=== PATIENT | female | born 1970 | race Caucasian/White ===

== ENCOUNTER 2022-08-22 11:25 | Emergency (ER) | payer OTHER ==
[2022-08-22 11:37] VITALS: BP 106/54; PULSE 79; RESP 18; TEMP 98.6; BMI 24.2
[2022-08-22 12:27] LABS: HCG,QUALITATIVE URINE Negative
[2022-08-22 12:30] LABS: HEMATOCRIT 26.6 % (32.4-45.2); HEMOGLOBIN 8.6 G/dL (10.7-15.3); MCH 28.9 pg (25.7-33.7); MCHC 32.3 g/dl (32.0-36.0); MEAN CELL VOLUME 89.3 fl (80-96); MEAN PLT VOLUME 7.5 fl (7.5-11.1); PLATELET COUNT 412.9 10^3/uL (134-434); RBC 2.98 10^6/uL (3.60-5.2); RDW 16.5 % (11.6-15.6); WHITE BLOOD COUNT 6.8 10^3/uL (4.0-10.8)
[2022-08-22 12:39] LABS: EPITHELIAL CELLS FEW /hpf
[2022-08-22 12:39] LABS: INR 0.96 (0.83-1.09); PROTHROMBIN TIME (PATIENT) 11.1 SEC (9.7-13.0)
[2022-08-22 12:42] LABS: ACTIVATED PTT 27.2 SECONDS (25.2-36.5)
[2022-08-22 12:46] LABS: ALBUMIN 3.6 g/dl (3.4-5.0); BILIRUBIN,TOTAL 0.2 mg/dl (0.2-1); CALCIUM 8.9 mg/dl (8.5-10); CREATININE 0.7 mg/dl (0.55-1.3); POTASSIUM 4.6 mmol/L (3.5-5.1); TOT PROT 6.7 g/dl (6.4-8.2)
[2022-08-22 12:56] LABS: PLATELET ESTIMATE ADEQUATE
== END 2022-08-22 13:30 | disposition home or self-care (01) ==
LOC: FER 11:25
DX: D64.9 Anemia, unspecified (principal); D25.9 Leiomyoma of uterus, unspecified; N92.0 Excessive and frequent menstruation with regular cycle; R53.83 Other fatigue; Z20.822 Contact with and (suspected) exposure to COVID-19
CPT/HCPCS: 36415; 80053; 81003; 81015; 84703; 85027; 85610; 85730; 86850; 86900; 86901; 87635; 93005; 99284-25

== ENCOUNTER 2023-10-02 22:01 | Emergency (ER) | payer OTHER ==
[2023-10-02 22:28] VITALS: BP 101/65; PULSE 62; RESP 16; TEMP 98; BMI 25.3
== END 2023-10-02 22:50 | disposition left against medical advice (07) ==
LOC: FER 22:01
DX: S01.21XA Laceration without foreign body of nose, initial encounter (principal); W22.09XA Striking against other stationary object, initial encounter
CPT/HCPCS: 99282-25

== ENCOUNTER 2023-10-04 11:04 | Emergency (ER) | payer OTHER ==
[2023-10-04 11:12] VITALS: BP 100/63; PULSE 70; RESP 18; TEMP 97.4; BMI 25.3
== END 2023-10-04 12:00 | disposition home or self-care (01) ==
LOC: JER 11:04
DX: S01.21XA Laceration without foreign body of nose, initial encounter (principal); Z48.00 Encounter for change or removal of nonsurgical wound dressing; X58.XXXA Exposure to other specified factors, initial encounter
CPT/HCPCS: 99282-25